=== PATIENT | female | born 1990 | race Two or more races ===

== ENCOUNTER 2024-06-01 11:59 | Emergency (ER) | payer SELFPAY ==
[2024-06-01 12:33] LABS: APPEARANCE,URINE CLEAR; BILIRUBIN,URINE NEGATIVE (NEGATIVE); COLOR,URINE YELLOW; GLUCOSE,URINE NEGATIVE (NEGATIVE); KETONES,URINE NEGATIVE (NEGATIVE); LEUKOCYTE ESTERASE,URINE TRACE (NEGATIVE); NITRITE,URINE NEGATIVE (NEGATIVE); OCCULT BLOOD,URINE SMALL (NEGATIVE); PROTEIN,URINE NEGATIVE (NEGATIVE); UROBILINOGEN,URINE 0.2 EU/dL (<2.0)
[2024-06-01] MEDS: traMADol 50 MG Tab PO STA (12:35)
[2024-06-01] MEDS: Alum Hydrox/Mag Hydrox/Simeth 15 ML, Lidocaine 2% 5 ML PO STA (12:35)
[2024-06-01] MEDS: Lidocaine 2% 11 ML Jelly Filled Syringe MUCMEM STA (12:37)
[2024-06-01 12:45] LABS: BACTERIA,URINE RARE (NEGATIVE); EPITHELIAL CELLS,URINE RARE (NONE-FEW)
[2024-06-01 14:26] LABS: C. TRACHOMATIS BY PCR NOT DETECTED; N. GONORRHOEAE BY PCR NOT DETECTED
[2024-06-01 14:38] LABS: CANDIDA DNA PROBE NEGATIVE (NEGATIVE); GARDNERELLA DNA PROBE POSITIVE (NEGATIVE); TRICHOMONAS DNA PROBE NEGATIVE (NEGATIVE)
== END 2024-06-01 15:05 | disposition home or self-care (01) ==
LOC: MW.ED 11:59
DX: J02.0 Streptococcal pharyngitis (principal); N76.0 Acute vaginitis; N30.00 Acute cystitis without hematuria; Z20.2 Contact with and (suspected) exposure to infections with a predominantly sexual mode of transmission; Z75.8 Other problems related to medical facilities and other health care; Z79.899 Other long term (current) drug therapy
CPT/HCPCS: 81001; 81025; 87086; 87480; 87491; 87510; 87591; 87651; 87660; 99283; A9270